=== PATIENT | female | born 1975 | race Caucasian/White ===

== ENCOUNTER 2018-10-22 05:45 | Observation (INO) | payer OTHER ==
[2018-10-22] MEDS ORDERED: GABAPENTIN 300 MG CAP PO ONE (05:56)
[2018-10-22] MEDS ORDERED: PHENAZOPYRIDINE HCL 200 MG TAB PO ONE (05:56)
[2018-10-22] MEDS ORDERED: ACETAMINOPHEN 500 MG TAB PO ONE (05:56)
[2018-10-22] MEDS ORDERED: ceFAZolin 2 GM/DEXTROSE 100 ML IV ONE (05:56)
[2018-10-22] MEDS ORDERED: LR 1,000 ML IV ONE (05:58)
[2018-10-22] MEDS ORDERED: BUPIVACAINE/EPI 0.5% 30 ML SDV ONE (06:45)
--- NOTE | 2018-10-22 07:02 | PDANEPAE ---
ANE History of Present Illness JAYNA SAVAGE Past Medical History - Cardiovascular History Hx Hypertension: No Hx Arrhythmias: No Hx Chest Pain: No Hx Coronary Artery / Peripheral Vascular Disease: No Hx CHF / Valvular Disease: No Hx Palpitations: No - Pulmonary History Hx COPD: No Hx Asthma/Reactive Airway Disease: No Hx Recent Upper Respiratory Infection: No Hx Oxygen in Use at Home: No Hx Sleep Apnea: No Sleep Apnea Screening Result - Last Documented: Negative - Neurologic History Hx Cerebrovascular Accident: No Hx Seizures: No Hx Dementia: No - Endocrine History Hx Diabetes: No - Renal History Hx Renal Disorders: No - Liver History Hx Hepatic Disorders: No - Neurological & Psychiatric Hx Hx Neurological and Psychiatric Disorders: No - Cancer History Hx Cancer: Yes Cancer History Comment: Basal cell CA 2001 - Congenital Disorder History Hx Congenital Disorders: No - GI History Hx Gastrointestinal Disorders: No - Other Health History 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 - Chronic Pain History Chronic Pain: No - Surgical History Prior Surgeries: Multiple colonscopies. C/S 2009 ANE Review of Systems Review of systems is: negative Review of Systems: - Exercise capacity METS (RN): 4 METS ANE Patient History - Allergies Allergies/Adverse Reactions: Sulfa (Sulfonamide Antibiotics) Allergy (Verified 10/08/18 11:09) Face rash - Home Medications Home medications: home medication list seen and reviewed Home Medications: Herbals/Supplements -Info Only 1 ea PO DAILY 10/08/18 [Last Taken 10/15/18] Ibuprofen [Motrin (*)] 200 mg PO DAILY PRN 10/08/18 [Last Taken 10/08/18] Multivitamins [Multivitamin (*)] 1 each PO DAILY 10/08/18 [Last Taken 10/15/18] Norgestimate-Ethinyl Estradiol [Sprintec] 1 each PO DAILY 10/08/18 [Last Taken 10/22/18 04:00] valACYclovir [Valtrex (*)] 1,000 mg PO DAILY PRN 10/08/18 [Last Taken 10/20/18] - NPO status NPO Since - Liquids (Date): 10/22/18 NPO Since - Liquids (Time): 04:00 NPO Since - Solids (Date): 10/21/18 NPO Since - Solids (Time): 21:45 - Anes Hx Anes Hx: post operative nausea - Smoking Hx Smoking Status: Never smoked - Family Anes Hx Family Anes Hx: none Family Hx Anesthesia Complications: None. ANE Labs/Vital Signs - Vital Signs Vital Signs: reviewed preoperatively; see RN documention for details Blood Pressure: 174/103 Heart Rate: 95 Respiratory Rate: 14 O2 Sat (%): 97 Height: 162.56 cm Weight: 84.368 kg ANE Physical Exam - Airway Neck exam: FROM Mallampati Score: Class 1 Mouth exam: normal dental/mouth exam - Pulmonary Pulmonary: no respiratory distress - Cardiovascular Cardiovascular: regular rate and rhythym - ASA Status ASA Status: II ANE Anesthesia Plan Anesthesia Plan: general endotracheal anesthesia
[2018-10-22] MEDS ORDERED: MIDAZOLAM 2 MG/2 ML VIAL IVP ONE (07:04)
[2018-10-22 07:06] LABS: PLATELET COUNT 336 10^3/uL (150-400)
[2018-10-22] MEDS ORDERED: MIDAZOLAM 2 MG/2 ML VIAL ONE (07:06)
--- NOTE | 2018-10-22 07:11 | PDHPUP ---
History & Physical Update H&P update statement: This history and physical update is based on an assessment of the patient which was completed after admission or registration (within 24 hours), but prior to the surgery/procedure. H&P update: H&P reviewed & patient examined, no change in patient's condition since H&P completed
[2018-10-22] MEDS ORDERED: ROCURONIUM 50 MG/5 ML VIAL ONE (07:14)
[2018-10-22] MEDS ORDERED: SUGAMMADEX SODIUM 200 MG/2 ML VIAL IVP ONE (07:14)
[2018-10-22] MEDS ORDERED: LIDOCAINE 2% 100 MG/5 ML SYR ONE (07:14)
[2018-10-22] MEDS ORDERED: PROPOFOL 200 MG/20 ML VIAL ONE ×3 (07:14→08:09)
[2018-10-22] MEDS ORDERED: DEXAMETHASONE 4 MG/ML VIAL ONE (07:14)
[2018-10-22] MEDS ORDERED: fentaNYL 250 MCG/5 ML INJ ONE (07:14)
[2018-10-22] MEDS ORDERED: ONDANSETRON 4 MG/2 ML VIAL ONE (07:14)
[2018-10-22] MEDS ORDERED: oxyCODONE IR 5 MG TAB PO PRN (07:58)
[2018-10-22] MEDS ORDERED: LABETALOL HCL 5 MG/ML 20 ML MDV IVP PRN (07:58)
[2018-10-22] MEDS ORDERED: HYDROCODONE/APAP 5/325 TAB PO PRN (07:58)
[2018-10-22] MEDS ORDERED: NALOXONE HCL 0.4 MG/ML INJ IVP PRN (07:58)
[2018-10-22] MEDS ORDERED: MEPERIDINE 25 MG/0.5 ML AMP IVP PRN (07:58)
--- NOTE | 2018-10-22 08:00 | POSTANESTH ---
Post Anesthetic Evaluation Cardiovascular Status: Similar to Pre-Op Cond Respiratory Status: Normal, Stable, Similar to Pre-op Cond. Level of Consciousness/Mental Status: Can Participate in Eval, Mildly Sleepy, Arousable Pain Control: Adequate, Prn Tx Ordered Nausea/Vomiting Control: Inadeq, Add Tx Reqired Complications Possibly Related to Anesthesia: None Noted
[2018-10-22] MEDS ORDERED: KETOROLAC 30 MG/1 ML SDV ONE (08:27)
[2018-10-22] MEDS ORDERED: NEOSTIGMINE METHYLSULFATE 10 MG/10 ML MDV ONE (08:28)
[2018-10-22] MEDS ORDERED: GLYCOPYRROLATE 0.2 MG/1 ML VIAL ONE (08:28)
--- NOTE | 2018-10-22 08:44 | POSTOPPROG ---
Post Op Note Date of Operation: 10/22/18 Surgeon: Chip Cintron [employer] Administrator: Leatha Goldberg Anesthesiologist: Ara Anesthesia: GET(General Endotracheal) Pre-op Diagnosis: You Syndrome Post-op Diagnosis: Same Procedure: Robotic hyst/BSO, bilat ureterolysis, cysto Findings: Ureters function at end of case Inf/Abcess present in the surg proc area at time of surgery?: No EBL: Minimal Complications: None
[2018-10-22] MEDS: PROMETHAZINE HCL 25 MG/ML INJ IVP PRN ×2 (08:46→09:00)
[2018-10-22] MEDS ORDERED: PROMETHAZINE HCL 25 MG/ML INJ ONE (08:48)
[2018-10-22] MEDS ORDERED: ONDANSETRON 4 MG/2 ML VIAL IVP ONE (09:15)
[2018-10-22] MEDS ORDERED: SCOPOLAMINE HYDROBROMIDE 1 MG/3 DAYS PATCH TD ONE ×2 (09:15→09:22)
[2018-10-22] MEDS: fentaNYL 100 MCG/2 ML INJ IVP PRN ×2 (09:25→09:33)
[2018-10-22] MEDS ORDERED: fentaNYL 100 MCG/2 ML INJ ONE (09:26)
[2018-10-22] MEDS ORDERED: HYDROmorphONE/DILAUDID 2 MG/ML INJ ONE ×2 (10:18→11:03)
[2018-10-22] MEDS: HYDROmorphONE/DILAUDID 1 MG/ML INJ IVP PRN ×4 (11:06→13:04)
[2018-10-22] MEDS ORDERED: ONDANSETRON DISINTEGRATING 4 MG TAB PO PRN (11:28)
[2018-10-22] MEDS ORDERED: LR 1,000 ML IV SCH (11:30)
[2018-10-22] MEDS ORDERED: DIAZEPAM 10 MG/2 ML SYR IVP PRN (12:02)
[2018-10-22] MEDS: SIMETHICONE 80 MG TAB CHEW PO SCH ×3 (14:38→21:00)
[2018-10-22] MEDS: KETOROLAC 30 MG/1 ML SDV IVP SCH ×2 (14:38→20:30)
[2018-10-22] MEDS: ONDANSETRON 4 MG/2 ML VIAL IVP PRN ×2 (15:09→23:14)
[2018-10-22] MEDS ORDERED: PROMETHAZINE HCL 25 MG/ML INJ IVP ONE (16:30)
[2018-10-22] MEDS: DOCUSATE SODIUM 100 MG CAP PO SCH (21:00)
[2018-10-22] MEDS: HYDROCODONE/APAP 5/325 TAB PO PRN (22:00)
[2018-10-23] MEDS: HYDROCODONE/APAP 5/325 TAB PO PRN ×2 (02:17→06:17)
[2018-10-23] MEDS: KETOROLAC 30 MG/1 ML SDV IVP SCH (02:48)
[2018-10-23 07:58] LABS: PLATELET COUNT 326 10^3/uL (150-400)
[2018-10-23 08:47] VITALS: BP 130/80
[2018-10-23] MEDS: DOCUSATE SODIUM 100 MG CAP PO SCH (08:52)
[2018-10-23] MEDS ORDERED: KETOROLAC 30 MG/1 ML SDV IVP SCH (09:00)
--- NOTE | 2018-10-23 10:28 | GDS ---
[f rep st] DISCHARGE SUMMARY DISCHARGE DIAGNOSES: 1. Menorrhagia. 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 3. Pelvic adhesions. PROCEDURES: 1. Robotic-assisted total laparoscopic hysterectomy, bilateral salpingo-oophorectomy. 2. Uterosacral ligament colpopexy. 3. Bilateral ureterolysis. 4. Cystoscopy. HOSPITAL COURSE: The patient is a 42-year-old female with a history of heavy menses, as well as Lync h syndrome. She was taken to the operating room on 10/22/2018 where she underwent the above-mentione d procedures without complications. Her postoperative course was uneventful. The morning after surg lilly, she was ambulating, voiding, and tolerating a general diet. She was discharged home on postoper ative day #1 in good condition. Medications included Crewe and ibuprofen for pain and estradiol 0.1 mg patch twice weekly for hormone replacement. She was to follow up in the office 2 weeks after disc harge. /[id number]/MODL
--- NOTE | 2018-10-23 10:28 | GOP ---
[f rep st] OPERATIVE REPORT DATE OF OPERATION: 10/22/2018 SURGEON: Chip Cintron MD [employer]READ GR[employer]ER OPERATOR: VASYL Lloyd. ANESTHESIA: General. PREOPERATIVE DIAGNOSIS: 1. Menorrhagia. 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 3. Uterine prolapse. POSTOPERATIVE DIAGNOSIS: 1. Menorrhagia. 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 3. Uterine prolapse. 4. Severe pelvic adhesions. PROCEDURE PERFORMED: 1. Robotic-assisted total laparoscopic hysterectomy, bilateral salpingo-oophorectomy. 2. Uterosacral ligament colpopexy. 3. Bilateral ureterolysis. 4. Cystoscopy. FINDINGS: SPECIMENS: Uterus, bilateral tubes and ovaries. ESTIMATED BLOOD LOSS: Scant. DESCRIPTION OF PROCEDURE: The patient was taken to the operating room where she was identified. Gen eral anesthesia was administered and found to be adequate. She was placed in the lithotomy position and prepared and draped in normal sterile fashion. Ahumada catheter was placed in her bladder. A VCar e uterine manipulator was placed into the endometrial cavity and sutured to the cervix. An 8 mm infraumbilical incision was made with a scalpel. The Veress needle with CO2 gas flowing was advanced into the peritoneal cavity. The abdomen was then insufflated with carbon dioxide gas. The 8 mm trocar, followed by the laparoscope, was then inserted. The upper abdomen was unremarkable. Tw o lateral ports were placed in the right, one on the left under direct visualization. She then was p laced in Trendelenburg position and the da Lyndsay robot docked on the left side. The instruments were brought into the abdominal cavity under direct visualization. The uterus and bladder were densely adherent to the anterior abdominal wall, likely from her prior ce sarean section. Some of the adhesions extended to the pelvic sidewall. Careful and delicate dissect ion was required to separate the organs from the anterior abdominal wall. She also required a bilate ral ureterolysis to separate the lateral aspects of the uterus from the ureters. The peritoneum at t he pelvic brims was incised. The ureters were gently dissected free and lateralized off the overlyin g peritoneum from the pelvic brim all the way down to the bladder. Once normal anatomy was restored, the anterior leaf of the broad ligaments were incised toward the bifurcation of the common iliac ves sels. The infundibulopelvic vessels were then cauterized and transected. The uterine vasculature wa s then cauterized and transected. A circumferential colpotomy incision was made with the hot luiza, and all specimens were removed through the vagina. The vaginal cuff was then closed with a running suture of 0 V-Loc 180. A bilateral uterosacral ligament colpopexy was performed by attaching the lat eral aspect of the vaginal cuff to the ipsilateral uterosacral ligaments near the coccygeal-sacrospin ous ligament complexes. The pelvis was then irrigated with sterile saline, and hemostasis was present. The robot was then un docked. Skin was closed with 4-0 Monocryl. Cystoscopy was then performed. Both ureters had vigorou s jets of urine. There was no evidence of bladder nor urethral injury seen. No evidence of patholog y was seen. Anesthesia was reversed. The patient taken the PACU awake, in stable condition. COMPLICATIONS: None. DISPOSITION: Patient stable to PACU. /[id number]/MODL
== END 2018-10-23 10:50 | disposition home or self-care (01) ==
LOC: F3N 05:45 → FOB 12:45
PROVIDERS: ADMIT Obstetrics & Gynecology; ATTEND Obstetrics & Gynecology
DX: N92.0 Excessive and frequent menstruation with regular cycle (principal); Z15.09 Genetic susceptibility to other malignant neoplasm; N81.4 Uterovaginal prolapse, unspecified; I10 Essential (primary) hypertension; Z80.49 Family history of malignant neoplasm of other genital organs; Z80.0 Family history of malignant neoplasm of digestive organs; Z85.820 Personal history of malignant melanoma of skin
CPT/HCPCS: 57283; 58571; G0378; J0690; J1100; J1170; J1885; J2001; J2250; J2405; J2550; J2704; J3010; J3360